=== PATIENT | female | born 1955 | race Caucasian/White ===

== ENCOUNTER 2019-04-29 10:57 | Day surgery (SDC) | payer OTHER ==
[2019-04-29] MEDS ORDERED: FERRIC CARBOXYMALTOSE 750 MG in SODIUM CHLORIDE 250 ML IVPB ONE (11:15)
[2019-04-29 14:37] VITALS: BP 135/93; PULSE 69; TEMP 98.5
== END 2019-04-29 12:55 | disposition home or self-care (01) ==
LOC: JINFUSION 10:57
PROVIDERS: ATTEND Family Medicine
PROC: 3E033GC Introduction of Other Therapeutic Substance into Peripheral Vein, Percutaneous Approach (ICD-10-PCS; principal; 2019-04-29)
DX: D50.9 Iron deficiency anemia, unspecified (principal)
CPT/HCPCS: 96365; J1439

== ENCOUNTER 2019-05-12 11:30 | Day surgery (SDC) | payer OTHER ==
[~2019-05-12 11:30] MED LIST: FERRIC CARBOXYMALTOSE 750 MG in SODIUM CHLORIDE 250 ML IVPB ONE
[2019-05-12 15:30] VITALS: BP 142/79; PULSE 82; TEMP 98.1
== END 2019-05-12 13:35 | disposition home or self-care (01) ==
LOC: JINFUSION 11:30
PROVIDERS: ATTEND Family Medicine
PROC: 3E033GC Introduction of Other Therapeutic Substance into Peripheral Vein, Percutaneous Approach (ICD-10-PCS; principal; 2019-05-12)
DX: E61.1 Iron deficiency (principal)
CPT/HCPCS: 96365; J1439

== ENCOUNTER 2020-05-11 08:20 | Inpatient (IN) | payer OTHER ==
[2020-05-11] MEDS ORDERED: PIPERACILLIN/TAZOB 3.375 GM 3.375 GM/50 ML BAG IVPB ONE ×2 (11:50→18:26)
[2020-05-11 11:56] LABS: BASO % 0.5 % (0-2.0); EOS % 0.7 % (0-4.5); HEMATOCRIT 35.7 % (32.4-45.2); LYMPH % 42.6 % (8-40); MCH 31.4 pg (25.7-33.7); MCHC 33.6 g/dl (32.0-36.0); MEAN CELL VOLUME 93.5 fl (80-96); MEAN PLT VOLUME 9.7 fl (7.5-11.1); MONO % 6.1 % (3.8-10.2); NEUT % 50.1 % (42.8-82.8); PLATELET COUNT 222 K/MM3 (134-434); RBC 3.82 M/mm3 (3.60-5.2); RDW 12.8 % (11.6-15.6); WHITE BLOOD COUNT 7.6 K/mm3 (4.0-10.0)
[2020-05-11] MEDS: PIPERACILLIN/TAZOB 3.375 GM 3.375 GM in DEXTROSE 5%-WATER - 50 ML IVPB SCH ×2 (11:58→18:36)
[2020-05-11 12:07] LABS: INR 0.98 (0.83-1.09); PROTHROMBIN TIME (PATIENT) 11.9 SEC (9.7-13.0)
[2020-05-11 12:09] LABS: ACTIVATED PTT 31.4 SECONDS (25.2-36.5)
[2020-05-11 12:18] LABS: CHLORIDE 106 mmol/L (98-107); SODIUM 142 mmol/L (136-145)
[2020-05-11 12:20] LABS: CALCIUM 9.3 mg/dL (8.5-10.1)
[2020-05-11 12:21] LABS: ALBUMIN 3.6 g/dl (3.4-5.0); ANION GAP 5 MMOL/L (8-16); BLOOD UREA NITROGEN 10.2 mg/dL (7-18); CO2 31 mmol/L (21-32); GLUCOSE,RANDOM 127 mg/dL (74-106)
[2020-05-11 12:24] LABS: SGOT/AST 12 U/L (15-37); SGPT/ALT 14 U/L (13-61)
[2020-05-11 12:25] LABS: BILIRUBIN,TOTAL 0.5 mg/dL (0.2-1)
[2020-05-11 12:26] LABS: TOT PROT 7.2 g/dl (6.4-8.2)
[2020-05-11 12:27] LABS: ALK PHOS 96 U/L (45-117)
[2020-05-11] MEDS ORDERED: sitaGLIPtin PHOSPHATE 50 MG TABLET ONE ×2 (13:44→13:51)
[2020-05-11] MEDS ORDERED: GABAPENTIN 100 MG CAPSULE ONE ×3 (13:45→14:32)
[2020-05-11] MEDS ORDERED: FAMOTIDINE 20 MG TABLET ONE (13:46)
[2020-05-11] MEDS: GABAPENTIN 400 MG CAPSULE PO SCH ×2 (13:58→22:06)
[2020-05-11] MEDS: FAMOTIDINE 20 MG TABLET PO SCH (13:58)
[2020-05-11] MEDS: CHOLESTYRAMINE/SUCROSE 4 GM PACKET PO SCH (14:56)
[2020-05-11] MEDS: INSULIN SLIDING SCALE (NOVOLOG) 1 VIAL SQ SCH (18:36)
[2020-05-11] MEDS ORDERED: LOSARTAN POTASSIUM 50 MG TABLET PO SCH (22:00)
[2020-05-11] MEDS: HEPARIN NA (PORCINE) 5,000 UNITS/ML 1ML VIAL SQ SCH (22:07)
[2020-05-11 23:39] VITALS: BMI 30.7
[2020-05-12] MEDS: PIPERACILLIN/TAZOB 3.375 GM 3.375 GM in DEXTROSE 5%-WATER - 50 ML IVPB SCH ×2 (01:52→10:05)
[2020-05-12] MEDS: INSULIN SLIDING SCALE (NOVOLOG) 1 VIAL SQ SCH ×2 (06:35→12:23)
[2020-05-12 09:10] LABS: BASO % 0.7 % (0-2.0); EOS % 1.2 % (0-4.5); HEMATOCRIT 33.1 % (32.4-45.2); HEMOGLOBIN 11.1 GM/dL (10.7-15.3); LYMPH % 38.9 % (8-40); MCH 31.3 pg (25.7-33.7); MCHC 33.6 g/dl (32.0-36.0); MONO % 8.4 % (3.8-10.2); NEUT % 50.8 % (42.8-82.8); PLATELET COUNT 211 K/MM3 (134-434); RBC 3.55 M/mm3 (3.60-5.2); RDW 12.4 % (11.6-15.6); WHITE BLOOD COUNT 5.8 K/mm3 (4.0-10.0)
[2020-05-12 09:42] LABS: ALBUMIN 3.4 g/dl (3.4-5.0); BLOOD UREA NITROGEN 12.2 mg/dL (7-18)
[2020-05-12 09:43] LABS: BILIRUBIN,TOTAL 0.5 mg/dL (0.2-1); TOT PROT 6.6 g/dl (6.4-8.2)
[2020-05-12 09:45] LABS: CREATININE 1.1 mg/dL (0.55-1.3)
[2020-05-12 09:49] LABS: CALCIUM 9.1 mg/dL (8.5-10.1)
[2020-05-12] MEDS: FAMOTIDINE 20 MG TABLET PO SCH (10:01)
[2020-05-12] MEDS: GABAPENTIN 400 MG CAPSULE PO SCH (10:01)
[2020-05-12] MEDS: CHOLESTYRAMINE/SUCROSE 4 GM PACKET PO SCH (10:01)
[2020-05-12] MEDS: HEPARIN NA (PORCINE) 5,000 UNITS/ML 1ML VIAL SQ SCH (10:06)
[2020-05-12] MEDS ORDERED: amLODIPine BESYLATE 5 MG TABLET (FP) PO SCH (13:15)
[2020-05-12 16:05] VITALS: TEMP 98
[2020-05-12 16:06] VITALS: BP 160/77; PULSE 57
== END 2020-05-12 15:38 | disposition home or self-care (01) | DRG 638 ==
LOC: JER 08:20 → JERBED 12:35 → J6WEST-2 21:18
PROVIDERS: ADMIT Family Medicine; ATTEND Family Medicine
PROC: 02HV33Z Insertion of Infusion Device into Superior Vena Cava, Percutaneous Approach (ICD-10-PCS; principal; 2020-05-12)
PROC: B518ZZA Fluoroscopy of Superior Vena Cava, Guidance (ICD-10-PCS; 2020-05-12)
DX: E11.69 Type 2 diabetes mellitus with other specified complication (principal); L02.611 Cutaneous abscess of right foot; L03.115 Cellulitis of right lower limb; L03.116 Cellulitis of left lower limb; E11.42 Type 2 diabetes mellitus with diabetic polyneuropathy; I10 Essential (primary) hypertension; E78.5 Hyperlipidemia, unspecified; K21.9 Gastro-esophageal reflux disease without esophagitis; S91.104A Unspecified open wound of right lesser toe(s) without damage to nail, initial encounter
CPT/HCPCS: 36415; 36569; 71045-TC-FY; 73630-TC-RT-FY; 73660-TC-FY; 73718-TC-RT; 77001-TC-FY; 80053; 82962; 83036; 85025; 85610; 85651; 85730; 86140; 86850; 86900; 86901; 87040; 93005; 93010; 99285-25; C1751; C9803; J1644; U0003

== ENCOUNTER 2020-05-20 17:05 | Inpatient (IN) | payer OTHER ==
[2020-05-20] MEDS ORDERED: ACETAMINOPHEN 325 MG TABLET (FP) PO ONE (17:30)
[2020-05-20] MEDS ORDERED: ACETAMINOPHEN 325 MG TABLET (FP) ONE (17:37)
[2020-05-20] MEDS ORDERED: CEFTRIAXONE 2 GM-D5W BAG 2 GM/50 ML BAG IVPB ONE (18:07)
[2020-05-20 18:08] LABS: BASO % 3.3 % (0-2.0); EOS % 1.7 % (0-4.5); HEMATOCRIT 38.7 % (32.4-45.2); LYMPH % 24.2 % (8-40); MCH 32.4 pg (25.7-33.7); MCHC 33.5 g/dl (32.0-36.0); MEAN CELL VOLUME 96.7 fl (80-96); MEAN PLT VOLUME 10.5 fl (7.5-11.1); MONO % 4.7 % (3.8-10.2); NEUT % 66.1 % (42.8-82.8); PLATELET COUNT 255 K/MM3 (134-434); RBC 4.01 M/mm3 (3.60-5.2); RDW 12.2 % (11.6-15.6); WHITE BLOOD COUNT 10.8 K/mm3 (4.0-10.8)
[2020-05-20 18:20] LABS: ACTIVATED PTT 25.8 SECONDS (25.2-36.5)
[2020-05-20 18:23] LABS: ALBUMIN 4.1 g/dl (3.4-5.0); BILIRUBIN,TOTAL 0.7 mg/dl (0.2-1); POTASSIUM 4.4 mmol/L (3.5-5.1); TOT PROT 7.7 g/dl (6.4-8.2)
[2020-05-20 18:25] LABS: INR 1.17 (0.82-1.09)
[2020-05-20] MEDS ORDERED: ENOXAPARIN NA (PORCINE) 100 MG/1 ML DISP.SYRIN SQ ONE ×2 (20:01→20:06)
[2020-05-20 21:30] VITALS: BMI 32.3
[2020-05-20] MEDS: GABAPENTIN 400 MG CAPSULE PO SCH (22:47)
[2020-05-20] MEDS: LOSARTAN POTASSIUM 50 MG TABLET PO SCH (22:47)
[2020-05-20] MEDS: ACETAMINOPHEN 325 MG TABLET (FP) PO PRN (23:35)
[2020-05-21] MEDS: CHOLESTYRAMINE/SUCROSE 4 GM PACKET PO SCH (08:03)
[2020-05-21 08:37] LABS: BASO % 1.1 % (0-2.0); EOS % 3.6 % (0-4.5); HEMATOCRIT 34.6 % (32.4-45.2); HEMOGLOBIN 11.2 GM/dl (10.7-15.3); LYMPH % 39.5 % (8-40); MCH 31.3 pg (25.7-33.7); MCHC 32.5 g/dl (32.0-36.0); MEAN CELL VOLUME 96.2 fl (80-96); MEAN PLT VOLUME 10.5 fl (7.5-11.1); MONO % 7.9 % (3.8-10.2); NEUT % 47.9 % (42.8-82.8); PLATELET COUNT 219 K/MM3 (134-434); RDW 12.1 % (11.6-15.6); WHITE BLOOD COUNT 7.1 K/mm3 (4.0-10.8)
[2020-05-21 08:57] LABS: ALBUMIN 3.4 g/dl (3.4-5.0); BILIRUBIN,TOTAL 0.6 mg/dl (0.2-1); CALCIUM 8.8 mg/dl (8.5-10); POTASSIUM 4.1 mmol/L (3.5-5.1); TOT PROT 6.6 g/dl (6.4-8.2)
[2020-05-21] MEDS ORDERED: DEXTROSE 5%-WATER 100 ML IVPB ONE (09:03)
[2020-05-21] MEDS: GABAPENTIN 400 MG CAPSULE PO SCH ×2 (09:24→21:38)
[2020-05-21] MEDS: CEFTRIAXONE 2 GM in DEXTROSE 5%-WATER 100 ML IVPB SCH (09:25)
[2020-05-21] MEDS: FAMOTIDINE 20 MG TABLET PO SCH (09:25)
[2020-05-21] MEDS: ENOXAPARIN NA (PORCINE) 100 MG/1 ML DISP.SYRIN SQ SCH ×2 (09:25→21:38)
[2020-05-21] MEDS: INSULIN SLIDING SCALE (NOVOLOG) 1 VIAL SQ SCH ×3 (12:00→21:40)
[2020-05-21] MEDS: ACETAMINOPHEN 325 MG TABLET (FP) PO PRN (14:15)
[2020-05-21] MEDS: LOSARTAN POTASSIUM 50 MG TABLET PO SCH (21:38)
[2020-05-22] MEDS: sitaGLIPtin PHOSPHATE 50 MG TABLET PO SCH (06:09)
[2020-05-22] MEDS: INSULIN SLIDING SCALE (NOVOLOG) 1 VIAL SQ SCH ×4 (06:09→21:54)
[2020-05-22] MEDS: CHOLESTYRAMINE/SUCROSE 4 GM PACKET PO SCH (08:00)
[2020-05-22] MEDS ORDERED: DEXTROSE 5%-WATER 100 ML IVPB ONE (09:02)
[2020-05-22] MEDS: GABAPENTIN 400 MG CAPSULE PO SCH ×2 (09:30→21:53)
[2020-05-22] MEDS: FAMOTIDINE 20 MG TABLET PO SCH (09:31)
[2020-05-22] MEDS: ENOXAPARIN NA (PORCINE) 100 MG/1 ML DISP.SYRIN SQ SCH ×2 (09:31→21:53)
[2020-05-22] MEDS: CEFTRIAXONE 2 GM in DEXTROSE 5%-WATER 100 ML IVPB SCH (09:36)
[2020-05-22] MEDS: ACETAMINOPHEN 325 MG TABLET (FP) PO PRN (20:17)
[2020-05-22] MEDS: LOSARTAN POTASSIUM 50 MG TABLET PO SCH (21:53)
[2020-05-23] MEDS: sitaGLIPtin PHOSPHATE 50 MG TABLET PO SCH (06:12)
[2020-05-23] MEDS: INSULIN SLIDING SCALE (NOVOLOG) 1 VIAL SQ SCH ×3 (06:13→16:37)
[2020-05-23] MEDS: CHOLESTYRAMINE/SUCROSE 4 GM PACKET PO SCH (07:43)
[2020-05-23] MEDS ORDERED: DEXTROSE 5%-WATER 100 ML IVPB ONE (07:57)
[2020-05-23] MEDS ORDERED: CEFTRIAXONE 2 GM in SODIUM CHLORIDE 100 ML IVPB SCH ×2 (08:29→10:00)
[2020-05-23] MEDS: FAMOTIDINE 20 MG TABLET PO SCH (09:11)
[2020-05-23] MEDS: ENOXAPARIN NA (PORCINE) 100 MG/1 ML DISP.SYRIN SQ SCH (09:11)
[2020-05-23] MEDS: GABAPENTIN 400 MG CAPSULE PO SCH (09:11)
[2020-05-23] MEDS: ACETAMINOPHEN 325 MG TABLET (FP) PO PRN (11:41)
[2020-05-23] MEDS ORDERED: NEBIVOLOL 5 MG TABLET (FP) PO SCH (14:00)
[2020-05-23 14:05] VITALS: BP 151/76; PULSE 66; TEMP 98.3
[2020-05-25] MEDS ORDERED: Lacosamide 200 MG/20 ML VIAL IVPB STA (11:11)
== END 2020-05-23 16:58 | disposition home or self-care (01) | DRG 301 ==
LOC: FER 17:05 → FM/S 20:26
PROVIDERS: ADMIT Internal Medicine; ATTEND Family Medicine
DX: I82.621 Acute embolism and thrombosis of deep veins of right upper extremity (principal); E11.42 Type 2 diabetes mellitus with diabetic polyneuropathy; I82.A11 Acute embolism and thrombosis of right axillary vein; E78.5 Hyperlipidemia, unspecified; I10 Essential (primary) hypertension; K21.9 Gastro-esophageal reflux disease without esophagitis; E66.9 Obesity, unspecified; Z68.32 Body mass index [BMI] 32.0-32.9, adult
CPT/HCPCS: 36415; 80053; 82962; 85025; 85610; 85730; 93005; 93971; 99285-25; C9803; U0003

== ENCOUNTER 2020-06-05 05:11 | Day surgery (SDC) | payer OTHER ==
[2020-06-02 09:23] VITALS: BMI 32.3
[~2020-06-05 05:11] MED LIST changes: +BUPIVACAINE HCL/PF 0.5% (5 MG/ML) 30 ML VIAL IJ ONE; -FERRIC CARBOXYMALTOSE 750 MG in SODIUM CHLORIDE 250 ML IVPB ONE; +LIDOCAINE HCL 1%, 10 MG/ML (20ML VIAL) NR ONE
[2020-06-05] MEDS ORDERED: LIDOCAINE HCL 1%, 10 MG/ML (20ML VIAL) ONE (10:19)
[2020-06-05] MEDS ORDERED: DEXAMETHASONE SOD PHOSPHATE 4 MG/1 ML VIAL ONE (10:19)
[2020-06-05] MEDS ORDERED: MIDAZOLAM HCL 2 MG/2 ML SINGLE DOSE VIAL ONE ×2 (10:52)
[2020-06-05] MEDS ORDERED: PROPOFOL 20 ML ONE (10:52)
[2020-06-05] MEDS ORDERED: ceFAZolin SODIUM 1 GM VIAL ONE (11:06)
[2020-06-05] MEDS ORDERED: KETOROLAC TROMETHAMINE 30 MG/1 ML VIAL ONE (11:33)
[2020-06-05 13:24] VITALS: BP 148/66; PULSE 61; TEMP 98
== END 2020-06-05 13:55 | disposition home or self-care (01) ==
LOC: JASU-SURG 05:11
PROVIDERS: ATTEND Podiatrist Foot Surgery
PROC: 0QBN0ZZ Excision of Right Metatarsal, Open Approach (ICD-10-PCS; principal; 2020-06-05 10:00)
DX: M89.371 Hypertrophy of bone, right ankle and foot (principal)
CPT/HCPCS: 73630-TC-RT-FY; 82962; 88304-TC; 88311-TC

== ENCOUNTER 2020-06-27 04:36 | Day surgery (SDC) | payer OTHER ==
[2020-06-26 09:33] VITALS: BMI 32.3
[2020-06-27] MEDS ORDERED: LIDOCAINE HCL 1%, 10 MG/ML (20ML VIAL) ONE ×2 (08:37→08:38)
[2020-06-27] MEDS ORDERED: DEXAMETHASONE SOD PHOSPHATE 4 MG/1 ML VIAL ONE (09:04)
[2020-06-27] MEDS ORDERED: MIDAZOLAM HCL 2 MG/2 ML SINGLE DOSE VIAL ONE (09:11)
[2020-06-27] MEDS ORDERED: PROPOFOL 20 ML ONE ×2 (09:11→09:45)
[2020-06-27] MEDS ORDERED: ceFAZolin SODIUM 1 GM VIAL IVPB ONE (09:27)
[2020-06-27] MEDS ORDERED: LIDOCAINE HCL 1%, 10 MG/ML (20ML VIAL) ID ONE (09:35)
[2020-06-27] MEDS ORDERED: BUPIVACAINE HCL/PF 0.5% (5MG/ML) 10 ML VIAL IJ ONE ×2 (09:35→10:15)
[2020-06-27] MEDS ORDERED: BACITRACIN 50,000 UNITS VIAL TP ONE (10:10)
[2020-06-27] MEDS ORDERED: ceFAZolin SODIUM 1 GM VIAL ONE ×2 (10:12→10:13)
[2020-06-27] MEDS ORDERED: KETOROLAC TROMETHAMINE 30 MG/1 ML VIAL ONE (10:13)
[2020-06-27] MEDS ORDERED: ONDANSETRON 4 MG/2 ML VIAL ONE (10:13)
[2020-06-27] MEDS ORDERED: DEXAMETHASONE SOD PHOSPHATE 4 MG/1 ML VIAL IVPUSH ONE (10:15)
[2020-06-27] MEDS ORDERED: ONDANSETRON 4 MG/2 ML VIAL IVPUSH PRN (10:31)
[2020-06-27] MEDS ORDERED: LACTATED RINGERS SOLUTION 1,000 ML IV SCH (10:45)
[2020-06-27 12:56] VITALS: BP 132/81; PULSE 62; TEMP 97.3
== END 2020-06-27 12:50 | disposition home or self-care (01) ==
LOC: JASU-SURG 04:36
PROVIDERS: ATTEND Podiatrist Foot Surgery
PROC: 0QSN04Z Reposition Right Metatarsal with Internal Fixation Device, Open Approach (ICD-10-PCS; principal; 2020-06-27 08:30)
DX: M20.11 Hallux valgus (acquired), right foot (principal); I10 Essential (primary) hypertension; E11.9 Type 2 diabetes mellitus without complications
CPT/HCPCS: 82962; 88304-TC; 88311-TC; 94760

== ENCOUNTER 2020-07-04 10:49 | Inpatient (IN) | payer OTHER ==
[2020-07-04 11:14] VITALS: BMI 33.3
[2020-07-04 13:36] LABS: BASO % 0.8 % (0-2.0); EOS % 0.8 % (0-4.5); HEMATOCRIT 36.7 % (32.4-45.2); HEMOGLOBIN 12.6 GM/dL (10.7-15.3); LYMPH % 30.7 % (8-40); MCHC 34.3 g/dl (32.0-36.0); MEAN CELL VOLUME 93.3 fl (80-96); MEAN PLT VOLUME 10.7 fl (7.5-11.1); MONO % 6.3 % (3.8-10.2); NEUT % 61.4 % (42.8-82.8); PLATELET COUNT 247 K/MM3 (134-434); RBC 3.93 M/mm3 (3.60-5.2); WHITE BLOOD COUNT 9.1 K/mm3 (4.0-10.0)
[2020-07-04 14:04] LABS: CALCIUM 9.1 mg/dL (8.5-10.1)
[2020-07-04 14:05] LABS: ALBUMIN 3.4 g/dl (3.4-5.0); BLOOD UREA NITROGEN 7.8 mg/dL (7-18)
[2020-07-04 14:09] LABS: BILIRUBIN,TOTAL 0.4 mg/dL (0.2-1); TOT PROT 7.1 g/dl (6.4-8.2)
[2020-07-04] MEDS ORDERED: PIPERACILLIN/TAZOB 3.375 GM 3.375 GM/50 ML BAG IVPB ONE (14:56)
[2020-07-04] MEDS: PIPERACILLIN/TAZOB 3.375 GM 3.375 GM in DEXTROSE 5%-WATER - 50 ML IVPB SCH ×2 (15:16→18:08)
[2020-07-04] MEDS ORDERED: metFORMIN HCL 500 MG TABLET (FP) ONE (16:37)
[2020-07-04] MEDS ORDERED: ENOXAPARIN NA (PORCINE) 40 MG/0.4 ML DISP.SYRIN SQ ONE (16:37)
[2020-07-04] MEDS: ENOXAPARIN NA (PORCINE) 40 MG/0.4 ML DISP.SYRIN SQ SCH (16:45)
[2020-07-04] MEDS ORDERED: LOSARTAN POTASSIUM 50 MG TABLET ONE (21:40)
[2020-07-04] MEDS ORDERED: sitaGLIPtin PHOSPHATE 50 MG TABLET ONE (21:40)
[2020-07-04] MEDS ORDERED: GABAPENTIN 100 MG CAPSULE ONE (21:41)
[2020-07-04] MEDS: LOSARTAN POTASSIUM 50 MG TABLET PO SCH (22:09)
[2020-07-04] MEDS: GABAPENTIN 400 MG CAPSULE PO SCH (22:09)
[2020-07-05] MEDS ORDERED: PIPERACILLIN/TAZOB 3.375 GM 3.375 GM/50 ML BAG IVPB ONE ×2 (00:59→01:03)
[2020-07-05] MEDS: PIPERACILLIN/TAZOB 3.375 GM 3.375 GM in DEXTROSE 5%-WATER - 50 ML IVPB SCH ×3 (01:20→18:15)
[2020-07-05 06:47] LABS: BASO % 0.4 % (0-2.0); EOS % 1.4 % (0-4.5); HEMATOCRIT 31.9 % (32.4-45.2); HEMOGLOBIN 10.7 GM/dL (10.7-15.3); LYMPH % 41.4 % (8-40); MCH 31.6 pg (25.7-33.7); MCHC 33.7 g/dl (32.0-36.0); MEAN CELL VOLUME 93.9 fl (80-96); MEAN PLT VOLUME 9.9 fl (7.5-11.1); NEUT % 47.8 % (42.8-82.8); PLATELET COUNT 242 K/MM3 (134-434); RDW 13.3 % (11.6-15.6); WHITE BLOOD COUNT 7.6 K/mm3 (4.0-10.0)
[2020-07-05 06:55] LABS: INR 1.24 (0.83-1.09); PROTHROMBIN TIME (PATIENT) 14.9 SEC (9.7-13.0)
[2020-07-05 07:16] LABS: CALCIUM 8.4 mg/dL (8.5-10.1)
[2020-07-05 07:17] LABS: BLOOD UREA NITROGEN 9.4 mg/dL (7-18)
[2020-07-05 07:21] LABS: BILIRUBIN,TOTAL 0.6 mg/dL (0.2-1); TOT PROT 6.2 g/dl (6.4-8.2)
[2020-07-05] MEDS: NEBIVOLOL 5 MG TABLET (FP) PO SCH (10:08)
[2020-07-05] MEDS: GABAPENTIN 400 MG CAPSULE PO SCH ×2 (10:09→20:58)
[2020-07-05] MEDS: ENOXAPARIN NA (PORCINE) 40 MG/0.4 ML DISP.SYRIN SQ SCH (10:09)
[2020-07-05] MEDS: INSULIN SLIDING SCALE (NOVOLOG) 1 VIAL SQ SCH ×2 (18:15→21:12)
[2020-07-05] MEDS: LOSARTAN POTASSIUM 50 MG TABLET PO SCH (20:59)
[2020-07-05] MEDS: ENOXAPARIN NA (PORCINE) 80 MG/0.8 ML DISP.SYRIN SQ SCH (21:00)
[2020-07-05] MEDS: CHOLESTYRAMINE/SUCROSE 4 GM PACKET PO SCH (21:13)
[2020-07-06] MEDS: PIPERACILLIN/TAZOB 3.375 GM 3.375 GM in DEXTROSE 5%-WATER - 50 ML IVPB SCH ×3 (02:57→17:10)
[2020-07-06] MEDS: INSULIN SLIDING SCALE (NOVOLOG) 1 VIAL SQ SCH ×4 (06:34→21:52)
[2020-07-06 08:40] LABS: BASO % 0.7 % (0-2.0); EOS % 1.4 % (0-4.5); HEMATOCRIT 32.9 % (32.4-45.2); HEMOGLOBIN 11.4 GM/dL (10.7-15.3); LYMPH % 43.8 % (8-40); MCH 32.1 pg (25.7-33.7); MCHC 34.6 g/dl (32.0-36.0); MEAN PLT VOLUME 9.7 fl (7.5-11.1); MONO % 7.8 % (3.8-10.2); NEUT % 46.3 % (42.8-82.8); PLATELET COUNT 261 K/MM3 (134-434); RBC 3.54 M/mm3 (3.60-5.2); WHITE BLOOD COUNT 6.8 K/mm3 (4.0-10.0)
[2020-07-06] MEDS: NEBIVOLOL 5 MG TABLET (FP) PO SCH (09:44)
[2020-07-06] MEDS: CHOLESTYRAMINE/SUCROSE 4 GM PACKET PO SCH ×2 (09:44→21:58)
[2020-07-06] MEDS: ENOXAPARIN NA (PORCINE) 80 MG/0.8 ML DISP.SYRIN SQ SCH (10:40)
[2020-07-06] MEDS: GABAPENTIN 400 MG CAPSULE PO SCH ×3 (10:40→21:52)
[2020-07-06] MEDS ORDERED: metFORMIN HCL 500 MG TABLET (FP) PO ONE (11:34)
[2020-07-06] MEDS: APIXABAN 5 MG TABLET PO SCH ×2 (12:30→21:51)
[2020-07-06] MEDS ORDERED: FAMOTIDINE 20 MG TABLET PO ONE (17:21)
[2020-07-06] MEDS: ACETAMINOPHEN 325 MG TABLET (FP) PO PRN (18:11)
[2020-07-06 18:53] LABS: CALCIUM 9.1 mg/dL (8.5-10.1)
[2020-07-06 18:54] LABS: ALBUMIN 3.3 g/dl (3.4-5.0); BLOOD UREA NITROGEN 12.2 mg/dL (7-18)
[2020-07-06 18:57] LABS: CREATININE 1.1 mg/dL (0.55-1.3)
[2020-07-06 18:59] LABS: TOT PROT 6.6 g/dl (6.4-8.2)
[2020-07-06] MEDS: LOSARTAN POTASSIUM 50 MG TABLET PO SCH (21:51)
[2020-07-07] MEDS: PIPERACILLIN/TAZOB 3.375 GM 3.375 GM in DEXTROSE 5%-WATER - 50 ML IVPB SCH ×3 (01:56→17:10)
[2020-07-07] MEDS: GABAPENTIN 400 MG CAPSULE PO SCH ×3 (06:08→21:32)
[2020-07-07] MEDS: INSULIN SLIDING SCALE (NOVOLOG) 1 VIAL SQ SCH ×4 (07:32→21:37)
[2020-07-07] MEDS: APIXABAN 5 MG TABLET PO SCH ×2 (09:55→21:32)
[2020-07-07] MEDS: CHOLESTYRAMINE/SUCROSE 4 GM PACKET PO SCH ×2 (09:56→21:38)
[2020-07-07] MEDS: FAMOTIDINE 20 MG TABLET PO SCH (11:43)
[2020-07-07] MEDS: NEBIVOLOL 5 MG TABLET (FP) PO SCH (12:34)
[2020-07-07] MEDS: ACETAMINOPHEN 325 MG TABLET (FP) PO PRN (14:05)
[2020-07-07] MEDS: LOSARTAN POTASSIUM 50 MG TABLET PO SCH (21:32)
[2020-07-08] MEDS: PIPERACILLIN/TAZOB 3.375 GM 3.375 GM in DEXTROSE 5%-WATER - 50 ML IVPB SCH ×3 (02:36→17:13)
[2020-07-08] MEDS: GABAPENTIN 400 MG CAPSULE PO SCH ×3 (05:31→21:55)
[2020-07-08] MEDS: INSULIN SLIDING SCALE (NOVOLOG) 1 VIAL SQ SCH ×4 (06:48→22:03)
[2020-07-08 08:34] LABS: BASO % 0.4 % (0-2.0); HEMATOCRIT 34.5 % (32.4-45.2); HEMOGLOBIN 11.6 GM/dL (10.7-15.3); LYMPH % 37.7 % (8-40); MCH 31.8 pg (25.7-33.7); MCHC 33.7 g/dl (32.0-36.0); MEAN CELL VOLUME 94.6 fl (80-96); MEAN PLT VOLUME 9.6 fl (7.5-11.1); MONO % 9.2 % (3.8-10.2); NEUT % 51.7 % (42.8-82.8); PLATELET COUNT 278 K/MM3 (134-434); RBC 3.65 M/mm3 (3.60-5.2); WHITE BLOOD COUNT 7.5 K/mm3 (4.0-10.0)
[2020-07-08] MEDS: APIXABAN 5 MG TABLET PO SCH ×2 (09:26→21:56)
[2020-07-08] MEDS: NEBIVOLOL 5 MG TABLET (FP) PO SCH (09:26)
[2020-07-08] MEDS: FAMOTIDINE 20 MG TABLET PO SCH (09:26)
[2020-07-08] MEDS: CHOLESTYRAMINE/SUCROSE 4 GM PACKET PO SCH (09:27)
[2020-07-08 10:46] LABS: ERYTHROCYTE SEDIMENTATION RATE 45 mm/hr (0-30)
[2020-07-08] MEDS: ACETAMINOPHEN 325 MG TABLET (FP) PO PRN (21:57)
[2020-07-08] MEDS: LOSARTAN POTASSIUM 50 MG TABLET PO SCH (21:57)
[2020-07-09] MEDS: PIPERACILLIN/TAZOB 3.375 GM 3.375 GM in DEXTROSE 5%-WATER - 50 ML IVPB SCH ×3 (02:16→17:27)
[2020-07-09] MEDS: GABAPENTIN 400 MG CAPSULE PO SCH ×3 (06:11→22:37)
[2020-07-09] MEDS: CHOLESTYRAMINE/ASPARTAME 4 GM PACKET PO SCH ×2 (06:11→16:55)
[2020-07-09] MEDS: INSULIN SLIDING SCALE (NOVOLOG) 1 VIAL SQ SCH ×4 (06:17→22:51)
[2020-07-09] MEDS: APIXABAN 5 MG TABLET PO SCH ×2 (09:47→22:36)
[2020-07-09] MEDS: NEBIVOLOL 5 MG TABLET (FP) PO SCH (09:47)
[2020-07-09] MEDS: FAMOTIDINE 20 MG TABLET PO SCH ×2 (09:47→22:36)
[2020-07-09] MEDS ORDERED: ACETAMINOPHEN 1000 MG/100 ML BAG IVPB PRN (21:10)
[2020-07-09] MEDS ORDERED: LABETALOL HCL 5 MG/1 ML (100MG/20 ML VIAL) IVPUSH PRN (21:10)
[2020-07-09] MEDS: LOSARTAN POTASSIUM 50 MG TABLET PO SCH (22:36)
[2020-07-10] MEDS: PIPERACILLIN/TAZOB 3.375 GM 3.375 GM in DEXTROSE 5%-WATER - 50 ML IVPB SCH ×2 (02:26→10:42)
[2020-07-10] MEDS: GABAPENTIN 400 MG CAPSULE PO SCH ×2 (06:20→14:58)
[2020-07-10] MEDS: CHOLESTYRAMINE/ASPARTAME 4 GM PACKET PO SCH (06:21)
[2020-07-10] MEDS: INSULIN SLIDING SCALE (NOVOLOG) 1 VIAL SQ SCH ×3 (06:29→16:22)
[2020-07-10 09:33] VITALS: BP 151/73; PULSE 62; TEMP 98.6
[2020-07-10] MEDS: NEBIVOLOL 5 MG TABLET (FP) PO SCH (09:37)
[2020-07-10] MEDS: APIXABAN 5 MG TABLET PO SCH (09:37)
[2020-07-10] MEDS: FAMOTIDINE 20 MG TABLET PO SCH (09:37)
[2020-07-10 12:22] LABS: BASO % 0.6 % (0-2.0); EOS % 0.7 % (0-4.5); HEMATOCRIT 33.6 % (32.4-45.2); HEMOGLOBIN 11.3 GM/dL (10.7-15.3); LYMPH % 30.4 % (8-40); MCH 31.5 pg (25.7-33.7); MCHC 33.7 g/dl (32.0-36.0); MEAN CELL VOLUME 93.3 fl (80-96); MEAN PLT VOLUME 9.8 fl (7.5-11.1); MONO % 5.9 % (3.8-10.2); NEUT % 62.4 % (42.8-82.8); PLATELET COUNT 278 K/MM3 (134-434); RBC 3.61 M/mm3 (3.60-5.2); RDW 13.5 % (11.6-15.6); WHITE BLOOD COUNT 8.4 K/mm3 (4.0-10.0)
[2020-07-10 13:40] LABS: ERYTHROCYTE SEDIMENTATION RATE 23 mm/hr (0-30)
== END 2020-07-10 16:10 | disposition home or self-care (01) | DRG 300 ==
LOC: JER 10:49 → JERBED 16:26 → J6WEST-2 07-05 06:38
PROVIDERS: ADMIT Family Medicine; ATTEND Family Medicine
DX: I82.621 Acute embolism and thrombosis of deep veins of right upper extremity (principal); L03.115 Cellulitis of right lower limb; I82.A11 Acute embolism and thrombosis of right axillary vein; E11.42 Type 2 diabetes mellitus with diabetic polyneuropathy; I10 Essential (primary) hypertension; E78.5 Hyperlipidemia, unspecified; L08.9 Local infection of the skin and subcutaneous tissue, unspecified; K21.9 Gastro-esophageal reflux disease without esophagitis
CPT/HCPCS: 36415; 73610-TC-RT-FY; 73630-TC-RT-FY; 80053; 82962; 85025; 85610; 85651; 86140; 87040; 87070; 87205; 87804; 93005; 93010; 99285-25; C9803; U0003